=== PATIENT | female | born 1945 | race Caucasian/White ===

== ENCOUNTER 2020-03-05 09:15 | Inpatient (IN) | payer MEDICARE, OTHER ==
[~2020-03-05] VITALS: Ht 149.9 cm; Wt 91.2 kg
--- NOTE | 2020-03-05 09:30 | NUR ---
with patient at this time.
[2020-03-05] MEDS ORDERED: INSU100V7 SQ (09:38)
[2020-03-05] MEDS ORDERED: ENOX40DI SQ (09:38)
[2020-03-05] MEDS ORDERED: LISI40TA4 PO (09:38)
[2020-03-05] MEDS ORDERED: AMLO5TAB4 PO (09:38)
[2020-03-05] MEDS ORDERED: INSULIN REGULAR SQ (09:38)
[2020-03-05] MEDS ORDERED: POLY17PO4 PO (09:38)
[2020-03-05] MEDS ORDERED: ACET-2154 PO (09:38)
[2020-03-05] MEDS ORDERED: ONDA4AMP IV (09:38)
[2020-03-05] MEDS ORDERED: METO50TA16 PO (09:38)
[2020-03-05] MEDS ORDERED: MICONAZOLE TOP (09:38)
[2020-03-05] MEDS ORDERED: GABA-532 PO (09:38)
[2020-03-05] MEDS ORDERED: TRAM50TA2 PO (09:38)
[2020-03-05] MEDS ORDERED: PANT40TA2 PO (09:38)
[2020-03-05] MEDS ORDERED: HYDR-894 PO ×2 (09:38)
[2020-03-05] MEDS ORDERED: DEXT50VI3 IV (09:38)
[2020-03-05] MEDS ORDERED: RISP0.5T5 PO (09:38)
[2020-03-05 09:47] LABS: BASOPHILS % (AUTO) 0.4 % (0.0-2.0); EOSINOPHILS # (AUTO) 0.2 K/uL (0.0-0.7); EOSINOPHILS % (AUTO) 3.3 % (0.0-7.0); HEMATOCRIT 43.3 % (31.2-41.9); HEMOGLOBIN 14.7 g/dL (10.9-14.3); LYMPHOCYTES # (AUTO) 1.4 K/uL (20.0-40.0); LYMPHOCYTES % (AUTO) 18.8 % (20.5-51.5); MEAN CORPUSCULAR HEMOGLOBIN 29.9 uug (24.7-32.8); MEAN CORPUSCULAR HGB CONC 34 g/dL (32.3-35.6); MEAN CORPUSCULAR VOLUME 88.4 fL (75.5-95.3); MONOCYTES # (AUTO) 0.6 K/uL (2.0-10.0); MONOCYTES % (AUTO) 8.6 % (0.0-11.0); NEUTROPHILS # (AUTO) 4.9 K/uL (1.8-8.9); NEUTROPHILS % (AUTO) 68.9 % (38.5-71.5); PLATELET COUNT (AUTO) 210 K/uL (179-408); WHITE BLOOD COUNT (AUTO) 7.2 K/uL (3.8-11.8)
[2020-03-05 10:00] LABS: CARBON DIOXIDE 24 mmol/L (21-32); CHLORIDE 106 mmol/L (98-107); CREATININE 0.7 mg/dL (0.6-1.3); GLUCOSE 249 mg/dL (74-106); POTASSIUM 3.9 mmol/L (3.5-5.1); UREA NITROGEN, BLOOD 17 mg/dL (7-18)
[2020-03-05 10:05] LABS: ALANINE AMINOTRANSFERASE 72 U/L (14-59); ALKALINE PHOSPHATASE 68 U/L (50-136); BILIRUBIN,DIRECT 0.1 mg/dL (0.0-0.2); BILIRUBIN,TOTAL 0.4 mg/dL (0.2-1.0); ETHANOL < 3 MG/DL (0-0); TOTAL PROTEIN, SERUM 6.5 g/dL (6.4-8.2)
[2020-03-05 10:06] LABS: ACETAMINOPHEN < 2.0 ug/mL (10-30); ASPARTATE AMINOTRANSFERASE 42 U/L (15-37)
[2020-03-05 10:13] LABS: THYROID STIMULATING HORMONE 3.007 mIU/mL (0.358-3.740)
[2020-03-05 10:38] LABS: *BILIRUBIN,URIN NEGATIVE (NEGATIVE); *BLOOD, URINE NEGATIVE (NEGATIVE); *CLARITY,URINE CLOUDY (CLEAR); *COLOR,URINE YELLOW (YELLOW); *KETONES,URINE NEGATIVE (NEGATIVE); *UROBILINOGEN,URINE 0.2 E.U./dl (NORMAL); LEUKOCYTE ESTERASE ,URINE 1+ (NEGATIVE); NITRITE, URINE POSITIVE (NEGATIVE); UGLUCOSE 1+ (NEGATIVE)
[2020-03-05 10:56] LABS: *AMPHETAMINE, URINE NEGATIVE (NEGATIVE); *CANNABINOID, URINE NEGATIVE (NEGATIVE); *COCCAINE, URINE NEGATIVE (NEGATIVE); *OPIATE, URINE NEGATIVE (NEGATIVE); *PHENCYCLIDINE SCREEN,URINE NEGATIVE (NEGATIVE)
[2020-03-05] MEDS ORDERED: NITROFURANTOIN/NITROFURAN MAC 100 MG CAPSULE PO ONE ×2 (11:00→11:03)
--- NOTE | 2020-03-05 11:40 | NUR ---
Pt trans to MHU by PROGRAMMING DEVELOPMENT PROJECT MANAGER with NAD noted.
[2020-03-05] MEDS ORDERED: BLOOD SUGAR DIAGNOSTIC 1 EACH STRIP VI ONE (11:45)
[2020-03-05] MEDS ORDERED: MAG HYDROX/AL HYDROX/SIMETH 30 ML LIQUID UDC PO PRN (11:45)
[2020-03-05] MEDS ORDERED: LORAZEPAM 0.5 MG TABLET PO PRN (11:45)
[2020-03-05] MEDS ORDERED: ACETAMINOPHEN 325 MG TABLET PO PRN ×2 (11:45→14:30)
[2020-03-05] MEDS ORDERED: ZOLPIDEM 5 MG TABLET PO PRN (11:45)
[2020-03-05] MEDS ORDERED: MAGNESIUM HYDROXIDE 30 ML LIQUID UDC PO PRN (11:45)
[2020-03-05 12:00] VITALS: BP 159/64
[2020-03-05 12:59] LABS: BACTERIA,URINE MANY /HPF (NONE SEEN); RBC,URINE 0-3 /HPF (0-3); SQUAMOUS EPITHELIAL CELL,UR FEW /HPF (NONE SEEN); WBC,URINE TNTC /HPF (0-3)
[2020-03-05] MEDS ORDERED: TRAMADOL HCL 50 MG TABLET PO PRN (14:30)
[2020-03-05] MEDS ORDERED: MIRALAX 17 GM POWD.PACK PO PRN (14:30)
--- NOTE | 2020-03-05 14:35 | NUR ---
Admitted a 74 year-old female patient from ER, patient is alert and oriented x2 paranoia at time, patient is on 5150 for GD due to unable to care for herself. per patient medical record patient was AMA from a assisted and stay in a hotel.she states that recently fall and had rib fracture. 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 Franco made aware of Admission.
[2020-03-05 16:00] VITALS: BP 137/41
[2020-03-05] MEDS ORDERED: AMLODIPINE 5 MG TABLET PO SCH (17:00)
[2020-03-05] MEDS ORDERED: METOPROLOL TARTRATE 50 MG TABLET PO SCH (17:00)
[2020-03-05] MEDS: hydrALAZINE HCL 25 MG TABLET PO SCH ×2 (17:03→21:46)
[2020-03-05] MEDS: GABAPENTIN 100 MG CAPSULE PO SCH ×2 (17:03→21:33)
[2020-03-05] MEDS ORDERED: hydrALAZINE HCL 25 MG TABLET PO PRN (18:00)
[2020-03-05] MEDS: AMLODIPINE 5 MG TABLET PO SCH (21:44)
[2020-03-05] MEDS: METOPROLOL TARTRATE 50 MG TABLET PO SCH (21:44)
[2020-03-05] MEDS: ENOXAPARIN SODIUM 40 MG/0.4 ML DISP.SYRIN SQ SCH (21:50)
--- NOTE | 2020-03-06 06:07 | NUR ---
GPS: Remain calm and cooperative with meds and care. assisted with adl's. no c/o pain or discomfort at this time. resting in bed comfortably. continue plan of care.
--- NOTE | 2020-03-06 06:50 | NUR ---
slept 9.45 hrs through the night.
[2020-03-06 07:30] VITALS: BP 155/47
[2020-03-06 07:46] LABS: BILIRUBIN,TOTAL 0.5 mg/dL (0.2-1.0); CREATININE 0.7 mg/dL (0.6-1.3); POTASSIUM 3.9 mmol/L (3.5-5.1); TOTAL PROTEIN, SERUM 5.7 g/dL (6.4-8.2)
[2020-03-06] MEDS ORDERED: DEXTROSE 50% 50 ML DISP.SYRIN IV PRN (08:15)
[2020-03-06] MEDS ORDERED: TRAZODONE 50 MG TABLET PO PRN (09:00)
[2020-03-06] MEDS: GABAPENTIN 100 MG CAPSULE PO SCH ×3 (09:14→20:23)
[2020-03-06] MEDS: PANTOPRAZOLE SODIUM 40 MG TABLET.DR PO SCH (09:15)
[2020-03-06] MEDS: LISINOPRIL 20 MG TABLET PO SCH (09:15)
[2020-03-06] MEDS: CEphaleXIN 500 MG CAPSULE PO SCH ×3 (09:16→16:12)
[2020-03-06] MEDS: AMLODIPINE 5 MG TABLET PO SCH ×2 (09:17→20:24)
[2020-03-06] MEDS: METOPROLOL TARTRATE 50 MG TABLET PO SCH ×2 (09:17→20:23)
[2020-03-06] MEDS: hydrALAZINE HCL 25 MG TABLET PO SCH ×3 (09:20→20:23)
[2020-03-06] MEDS: risperiDONE 0.25 MG TABLET PO SCH ×2 (09:59→16:12)
--- NOTE | 2020-03-06 11:36 | NUR ---
Firearms Report: Assembler Tubing completed and submitted a DPJ firearms report for 5150 grave disability certification. A copy of report has been placed in patient chart.
[2020-03-06] MEDS: BLOOD SUGAR DIAGNOSTIC 1 EACH STRIP VI SCH ×3 (11:59→20:25)
--- NOTE | 2020-03-06 12:04 | NUR ---
SW Substance Abuse Intervention: Patient was provided with a brief substance abuse intervention and referred to [facility] ([phone]), [facility] ([phone]), and [facility] ([phone]).
--- NOTE | 2020-03-06 12:22 | NUR ---
BURAK Initial Discharge Plan: Patient is currently Homeless [facility] Patient was resident at [facility], however, she left AMA and went to a Motel. Patient does not have any supportive contact at the moment. This show card writer contacted [facility] ([phone]) this show card writer spoke with apollo Lise who stated pt left AMA and would have to discuss with treatment plan if they will take pt back. BURAK will work with the MD and treatment team to help coordinate proper discharge.
--- NOTE | 2020-03-06 12:23 | NUR ---
SW Family Contact: Patient does not have any supportive contact at the moment.
[2020-03-06] MEDS: INSULIN REGULAR, HUMAN 300 UNIT/3 ML VIAL SQ PRN ×2 (12:24→16:27)
[2020-03-06 16:00] VITALS: BP 153/36
[2020-03-06] MEDS: ENOXAPARIN SODIUM 40 MG/0.4 ML DISP.SYRIN SQ SCH (20:25)
[2020-03-06] MEDS: INSULIN REGULAR, HUMAN 300 UNITS/3 ML VIAL SQ PRN (20:26)
[2020-03-06 20:54] VITALS: BP 152/50
--- NOTE | 2020-03-07 06:14 | NUR ---
Received patient up in room last night. Patient had multiple requests for this and that. Mostly food. PM medications and food provided. Patient slept 6.30 hours. Continuing to monitor for behavior escalation and safety. No acute issues at this time.
[2020-03-07] MEDS: BLOOD SUGAR DIAGNOSTIC 1 EACH STRIP VI SCH ×4 (06:39→21:26)
[2020-03-07 07:30] VITALS: BP 168/48
[2020-03-07] MEDS: INSULIN REGULAR, HUMAN 300 UNIT/3 ML VIAL SQ PRN ×3 (08:27→17:04)
[2020-03-07] MEDS: AMLODIPINE 5 MG TABLET PO SCH ×2 (08:28→20:14)
[2020-03-07] MEDS: LISINOPRIL 20 MG TABLET PO SCH (08:28)
[2020-03-07] MEDS: CEphaleXIN 500 MG CAPSULE PO SCH ×3 (08:28→17:00)
[2020-03-07] MEDS: risperiDONE 0.25 MG TABLET PO SCH ×2 (08:28→17:00)
[2020-03-07] MEDS: PANTOPRAZOLE SODIUM 40 MG TABLET.DR PO SCH (08:28)
[2020-03-07] MEDS: hydrALAZINE HCL 25 MG TABLET PO SCH ×3 (08:29→20:15)
[2020-03-07] MEDS: GABAPENTIN 100 MG CAPSULE PO SCH ×3 (08:29→20:14)
[2020-03-07] MEDS: METOPROLOL TARTRATE 50 MG TABLET PO SCH ×2 (08:30→20:15)
--- NOTE | 2020-03-07 16:00 | NUR ---
Received patient in her room in bed, she is noted awake A/o x 2. patient noted hyperverbal, wuth flight of ideas but, pleasant upon approached. She is noted with poor insight and judgement as to the reason for her admission to MHU. She denied SI/HI/VH/AH. she is also noted with delusion of persecution and she is noted fixed on room-mate, he stated, "She is talking bad about me, she does not like that I wear diapers". patient was reassured and redirected. she was told to avoid confrontation with room mate. she was encouraged to verbalized feelings. pt is reassured for his safety. safety and fall precaution in place. will continue to monitor.
[2020-03-07 16:17] VITALS: BP 174/87
[2020-03-07 19:00] VITALS: BP 168/86
[2020-03-07 20:00] VITALS: BP 156/74
--- NOTE | 2020-03-07 20:00 | NUR ---
Patient noted arguing with room mate. she continue stated that room mate is "talking bad" about her. She required multiple redirection and reassurance. she is reassured for his safety.
[2020-03-07] MEDS: INSULIN REGULAR, HUMAN 300 UNITS/3 ML VIAL SQ PRN (21:28)
[2020-03-07] MEDS: INSULIN GLARGINE,HUM 300 UNITS/3 ML CARTRIDGE SQ SCH (21:29)
[2020-03-07] MEDS: ENOXAPARIN SODIUM 40 MG/0.4 ML DISP.SYRIN SQ SCH (21:30)
[2020-03-08] MEDS: BLOOD SUGAR DIAGNOSTIC 1 EACH STRIP VI SCH ×4 (06:59→20:12)
[2020-03-08 07:30] VITALS: BP 196/72
[2020-03-08] MEDS: CEphaleXIN 500 MG CAPSULE PO SCH ×3 (08:43→16:52)
[2020-03-08] MEDS: risperiDONE 0.25 MG TABLET PO SCH (08:44)
[2020-03-08] MEDS: GABAPENTIN 100 MG CAPSULE PO SCH ×3 (08:44→20:13)
[2020-03-08] MEDS: AMLODIPINE 5 MG TABLET PO SCH ×2 (08:44→20:14)
[2020-03-08] MEDS: PANTOPRAZOLE SODIUM 40 MG TABLET.DR PO SCH (08:44)
[2020-03-08] MEDS: METOPROLOL TARTRATE 50 MG TABLET PO SCH ×2 (08:45→20:28)
[2020-03-08] MEDS: hydrALAZINE HCL 25 MG TABLET PO SCH ×3 (08:45→20:13)
[2020-03-08] MEDS: LISINOPRIL 20 MG TABLET PO SCH (08:45)
[2020-03-08] MEDS: INSULIN REGULAR, HUMAN 300 UNIT/3 ML VIAL SQ PRN ×2 (12:16→16:54)
[2020-03-08 16:00] VITALS: BP 149/38
[2020-03-08] MEDS: risperiDONE 0.5 MG TABLET PO SCH (16:52)
[2020-03-08 20:06] VITALS: BP 146/66
[2020-03-08] MEDS: ENOXAPARIN SODIUM 40 MG/0.4 ML DISP.SYRIN SQ SCH (20:15)
[2020-03-08] MEDS: INSULIN GLARGINE,HUM 300 UNITS/3 ML CARTRIDGE SQ SCH (20:27)
[2020-03-08] MEDS: INSULIN REGULAR, HUMAN 300 UNITS/3 ML VIAL SQ PRN (20:30)
--- NOTE | 2020-03-09 05:46 | NUR ---
Patient slept 7.00 hours last night. No verbal altercations with the roommates noted. Patient continues to have delusion, but denies SI and HI. Unable to engage in meaningful conversation without interjection of delusional thoughts. Beauty Operator provided reality based input and redirection when necessary. No acute issues during the night, patient has been calm and cooperative.
[2020-03-09] MEDS: BLOOD SUGAR DIAGNOSTIC 1 EACH STRIP VI SCH ×4 (06:41→20:33)
[2020-03-09 07:30] VITALS: BP 177/41
[2020-03-09] MEDS: AMLODIPINE 5 MG TABLET PO SCH ×2 (08:47→20:35)
[2020-03-09] MEDS: GABAPENTIN 100 MG CAPSULE PO SCH ×3 (08:47→20:33)
[2020-03-09] MEDS: METOPROLOL TARTRATE 50 MG TABLET PO SCH ×2 (08:47→20:34)
[2020-03-09] MEDS: risperiDONE 0.5 MG TABLET PO SCH ×2 (08:47→17:14)
[2020-03-09] MEDS: LISINOPRIL 20 MG TABLET PO SCH (08:48)
[2020-03-09] MEDS: hydrALAZINE HCL 25 MG TABLET PO SCH ×3 (08:48→20:34)
[2020-03-09] MEDS: CEphaleXIN 500 MG CAPSULE PO SCH ×3 (08:48→17:14)
[2020-03-09] MEDS: PANTOPRAZOLE SODIUM 40 MG TABLET.DR PO SCH (08:48)
--- NOTE | 2020-03-09 10:51 | NUR ---
SW Note: This insurance writer met with patient and looked through items with patient to locate family contact. However, no family contact information was in her items.
--- NOTE | 2020-03-09 10:51 | NUR ---
SNF Contact: his check writer salesperson contacted [facility] ([phone]) and spoke with admissions Lise who stated pt is not welcomed back because she has left facility 3 times AMA. This check writer salesperson gathered collateral. Lise stated pt was residing at [facility] since June 2018 and stated no family has contacted her. She stated pt has been claiming that she has a son and daughter but no one has ever contacted pt.
--- NOTE | 2020-03-09 11:02 | NUR ---
SW Note: This com writer met with pt and pt gave an address that says 5th grade. She gave multiple numbers and claiming it is her daughters number. She gave [facility] Project number ([phone]) and other numbers ([phone]), ([phone]) and were not her daughters number.
--- NOTE | 2020-03-09 11:12 | NUR ---
SW Note: This found information pt was residing at [address], [place], [address]; ([phone]).
--- NOTE | 2020-03-09 11:37 | NUR ---
UR Note: AUTH# [id number] obtained from Harika with [employer]. approved for seven days. Can be reached at [phone] and his fax# [phone]. This fha underwriter left a voicemail of this SW information and faxed patient's clinicals.
[2020-03-09] MEDS: INSULIN REGULAR, HUMAN 300 UNITS/3 ML VIAL SQ PRN ×3 (12:09→20:44)
[2020-03-09 16:00] VITALS: BP 145/60
[2020-03-09 20:17] VITALS: BP 149/62
[2020-03-09] MEDS: ENOXAPARIN SODIUM 40 MG/0.4 ML DISP.SYRIN SQ SCH (20:47)
[2020-03-09] MEDS: INSULIN GLARGINE,HUM 300 UNITS/3 ML CARTRIDGE SQ SCH (20:49)
[2020-03-10] MEDS: BLOOD SUGAR DIAGNOSTIC 1 EACH STRIP VI SCH ×4 (06:43→20:10)
[2020-03-10 07:40] VITALS: BP 165/52
--- NOTE | 2020-03-10 08:09 | NUR ---
UR Note: AUTH# [id number] immigration case manager Radha ([phone]) will be pt's immigration case manager and stated she is authorized until 03/11 and her fax# [phone].
[2020-03-10] MEDS: risperiDONE 0.5 MG TABLET PO SCH ×3 (08:23→16:53)
[2020-03-10] MEDS: LISINOPRIL 20 MG TABLET PO SCH (08:24)
[2020-03-10] MEDS: PANTOPRAZOLE SODIUM 40 MG TABLET.DR PO SCH (08:24)
[2020-03-10] MEDS: METOPROLOL TARTRATE 50 MG TABLET PO SCH ×2 (08:25→20:10)
[2020-03-10] MEDS: GABAPENTIN 100 MG CAPSULE PO SCH ×3 (08:25→21:00)
[2020-03-10] MEDS: hydrALAZINE HCL 25 MG TABLET PO SCH ×3 (08:25→20:09)
[2020-03-10] MEDS: AMLODIPINE 5 MG TABLET PO SCH ×2 (08:28→20:07)
[2020-03-10] MEDS: CEphaleXIN 500 MG CAPSULE PO SCH ×3 (08:32→16:53)
--- NOTE | 2020-03-10 10:14 | NUR ---
SW Note: This speech writer discussed placement options with pt and pt stated she wants to go back to [employer] in [place].
--- NOTE | 2020-03-10 10:19 | NUR ---
Individual Counseling: patch worker met with patient for brief counseling to address patient's aggressive behavior. Patient appeared to be delusional and paranoid. Patient constantly stating she has family and that someone dropped her off clothes. However, patient does not have family as this SW has done research. Patient was unable to have proper conversation due to delusions. This specification writer was unable to conduct therapy at this moment.
--- NOTE | 2020-03-10 12:57 | NUR ---
BURAK Transportation: This song writer contacted [facility] SW drug department worker ([phone]) and department main number ([phone]) and left a voicemail to help with transportation.
[2020-03-10] MEDS: INSULIN REGULAR, HUMAN 300 UNIT/3 ML VIAL SQ PRN ×2 (13:02→16:52)
--- NOTE | 2020-03-10 13:27 | NUR ---
SW Transportation: This bond writer contacted [facility] SW department main number ([phone]) and spoke with Eva who stated pt is no longer with them and they do not provide transportation.
--- NOTE | 2020-03-10 16:20 | NUR ---
SW Coordination of Care: [facility] [address], [facility], [address]; ([phone]) will follow with (top lift trimmer) Dr. Vaughan on March 18 at 4:15PM. s iron worker Radha ([phone]) who arranged appointment.
--- NOTE | 2020-03-10 18:02 | NUR ---
pt is cooperative and interacts when engaged. Makes needs known to staff. pt keeps to self isolative and stays in room.
[2020-03-10 20:00] VITALS: BP 171/54
[2020-03-10] MEDS: INSULIN REGULAR, HUMAN 300 UNITS/3 ML VIAL SQ PRN (20:11)
[2020-03-10] MEDS: INSULIN GLARGINE,HUM 300 UNITS/3 ML CARTRIDGE SQ SCH (20:12)
[2020-03-10] MEDS: ENOXAPARIN SODIUM 40 MG/0.4 ML DISP.SYRIN SQ SCH (20:13)
[2020-03-10 21:00] VITALS: BP 152/64
[2020-03-11] MEDS: BLOOD SUGAR DIAGNOSTIC 1 EACH STRIP VI SCH ×4 (06:30→20:55)
[2020-03-11 07:30] VITALS: BP 123/66
[2020-03-11] MEDS: PANTOPRAZOLE SODIUM 40 MG TABLET.DR PO SCH (08:23)
[2020-03-11] MEDS: AMLODIPINE 5 MG TABLET PO SCH ×2 (08:23→20:44)
[2020-03-11] MEDS: GABAPENTIN 100 MG CAPSULE PO SCH ×3 (08:24→20:44)
[2020-03-11] MEDS: hydrALAZINE HCL 25 MG TABLET PO SCH ×3 (08:24→20:44)
[2020-03-11] MEDS: METOPROLOL TARTRATE 50 MG TABLET PO SCH ×2 (08:24→20:44)
[2020-03-11] MEDS: LISINOPRIL 20 MG TABLET PO SCH (08:24)
[2020-03-11] MEDS: CEphaleXIN 500 MG CAPSULE PO SCH ×3 (08:24→17:30)
[2020-03-11] MEDS: INSULIN REGULAR, HUMAN 300 UNIT/3 ML VIAL SQ PRN ×2 (08:28→12:29)
[2020-03-11] MEDS ORDERED: risperiDONE 1 MG TABLET PO ONE (09:00)
[2020-03-11] MEDS ORDERED: risperiDONE 2 MG TABLET PO SCH (09:00)
--- NOTE | 2020-03-11 09:00 | NUR ---
patient is anxious, guarded, and withdrawn to her assigned room. she is cooperative and pleasant with staff, but has periods where she becomes angry and labile. patient is redirectable. patient has paranoid thoughts, she believes that others are watching her and following her. she denies SI/HI, denies AH/VH. patient is adherent with medication, no adverse reaction noted. she is able to communicate needs to staff. able to ambulate independently with FWW. patient given risperidone 1 mg PO as ordered this AM. MD changed order from risperidone 1 mg PO to 2 mg PO after medication administration. pharmacy notified, and one time order placed for risperidone 1 mg PO to equal the 2 mg PO dose. patient provided with education about medication and it's side effects, able to verbalize understanding.
--- NOTE | 2020-03-11 09:34 | NUR ---
UR Note: AUTH# [id number] watch case polisher Radha ([phone]) (F:[phone]) and will review clinicals for authorization. This SW sent clinicals.
--- NOTE | 2020-03-11 10:33 | NUR ---
SW Transportation: This manual writer received a phone call from Julianne ([phone]) from [facility] who stated they will provided transportation upon discharge.
--- NOTE | 2020-03-11 10:34 | NUR ---
BURAK PC Hearing: Patient had probable cause hearing today and it was upheld for grave disability.
[2020-03-11 12:17] LABS: BASOPHILS % (AUTO) 0.3 % (0.0-2.0); EOSINOPHILS # (AUTO) 0.2 K/uL (0.0-0.7); EOSINOPHILS % (AUTO) 2.1 % (0.0-7.0); HEMATOCRIT 41.5 % (31.2-41.9); HEMOGLOBIN 13.8 g/dL (10.9-14.3); LYMPHOCYTES # (AUTO) 1.2 K/uL (20.0-40.0); LYMPHOCYTES % (AUTO) 16.2 % (20.5-51.5); MEAN CORPUSCULAR HEMOGLOBIN 29.6 uug (24.7-32.8); MEAN CORPUSCULAR HGB CONC 33 g/dL (32.3-35.6); MEAN CORPUSCULAR VOLUME 88.7 fL (75.5-95.3); MONOCYTES # (AUTO) 0.6 K/uL (2.0-10.0); MONOCYTES % (AUTO) 8.3 % (0.0-11.0); NEUTROPHILS # (AUTO) 5.2 K/uL (1.8-8.9); NEUTROPHILS % (AUTO) 73.1 % (38.5-71.5); PLATELET COUNT (AUTO) 219 K/uL (179-408); RED BLOOD CELL COUNT(AUTO) 4.67 MIL/uL (3.63-4.92); WHITE BLOOD COUNT (AUTO) 7.2 K/uL (3.8-11.8)
[2020-03-11 12:18] LABS: CREATININE 0.8 mg/dL (0.6-1.3); POTASSIUM 3.7 mmol/L (3.5-5.1)
--- NOTE | 2020-03-11 13:11 | NUR ---
SW Note: This entry writer met with pt and explained she will be discharged Monday. Pt wants to be discharged back [address] This entry writer stated [facility] will provide transportation on Monday03/13/20. Pt was agreeable.
--- NOTE | 2020-03-11 14:15 | NUR ---
UR Note: AUTH# [id number] case management specialist Radha ([phone]) authorized until 03/13.
[2020-03-11 16:00] VITALS: BP 147/42
[2020-03-11] MEDS: risperiDONE 2 MG TABLET PO SCH (17:30)
[2020-03-11 20:00] VITALS: BP 156/64
[2020-03-11] MEDS: ENOXAPARIN SODIUM 40 MG/0.4 ML DISP.SYRIN SQ SCH (20:54)
[2020-03-11] MEDS: INSULIN GLARGINE,HUM 300 UNITS/3 ML CARTRIDGE SQ SCH (20:56)
[2020-03-11] MEDS: INSULIN REGULAR, HUMAN 300 UNITS/3 ML VIAL SQ PRN (21:00)
[2020-03-12] MEDS: BLOOD SUGAR DIAGNOSTIC 1 EACH STRIP VI SCH ×4 (06:31→20:38)
[2020-03-12 07:51] VITALS: BP 189/68
[2020-03-12] MEDS: INSULIN REGULAR, HUMAN 300 UNIT/3 ML VIAL SQ PRN ×2 (08:06→18:04)
[2020-03-12] MEDS: METOPROLOL TARTRATE 50 MG TABLET PO SCH ×2 (09:19→20:36)
[2020-03-12] MEDS: GABAPENTIN 100 MG CAPSULE PO SCH ×3 (09:19→20:35)
[2020-03-12] MEDS: AMLODIPINE 5 MG TABLET PO SCH ×2 (09:20→20:36)
[2020-03-12] MEDS: risperiDONE 2 MG TABLET PO SCH ×2 (09:20→16:38)
[2020-03-12] MEDS: CEphaleXIN 500 MG CAPSULE PO SCH ×3 (09:24→16:38)
[2020-03-12] MEDS: LISINOPRIL 20 MG TABLET PO SCH (09:26)
[2020-03-12] MEDS: PANTOPRAZOLE SODIUM 40 MG TABLET.DR PO SCH (09:26)
[2020-03-12] MEDS: hydrALAZINE HCL 25 MG TABLET PO SCH ×3 (09:27→20:36)
--- NOTE | 2020-03-12 12:24 | NUR ---
Gps/Dispatcher Maintenance-Kept coming to the Nurses station, asking for her bra, needed to wear before leaving today, informed she is not leaving today, , reassured will returned all her valuables/belongings when she leaves. BS 188, refusing her sliding scale insulin .remains with eye patch right eye.
[2020-03-12 16:35] VITALS: BP 157/69
--- NOTE | 2020-03-12 18:00 | NUR ---
Gps/Quality Eng- patient allowed staff to administer sliding scale insulin coverage, for BS 251. Ate well dinner, requesting double portion chicken , informed her diet restrictions r/t to her diabetes .
[2020-03-12] MEDS: INSULIN GLARGINE,HUM 300 UNITS/3 ML CARTRIDGE SQ SCH (20:39)
[2020-03-12] MEDS: INSULIN REGULAR, HUMAN 300 UNITS/3 ML VIAL SQ PRN (20:43)
[2020-03-12] MEDS: ENOXAPARIN SODIUM 40 MG/0.4 ML DISP.SYRIN SQ SCH (20:45)
[2020-03-12 20:49] VITALS: BP 135/69
[2020-03-13] MEDS: BLOOD SUGAR DIAGNOSTIC 1 EACH STRIP VI SCH ×2 (06:33→11:30)
[2020-03-13 07:30] VITALS: BP 157/53
--- NOTE | 2020-03-13 08:02 | NUR ---
Discharge Note: Patient wants to be discharged to [facility] [address], [place], [address]; ([phone]). Patient will be provided with transportation through [facility] transportation called A to B at 1PM (spoke with Julianne ([phone]) who arranged transportation. Patient does not have supportive contact. Patient is alert and oriented x3. Patient denies suicidal or homicidal ideation. Patient will follow up with (Players Club Representative) Dr. Alexus Acosta on March 18 at 4:15PM and will provide and manage psychotropic medications located at [facility] [address], [facility], [address]; ([phone]). Patients primary doctors office will refer patient to a psychiatrist. This rewriter also gave resources for a psychiatrist office located [facility] [address] [place] [address], [facility]; ([phone]). Patient was provided referrals to the following substance abuse programs: [facility] Self[facility] ([phone]); [facility] [address] [place] [address] ([phone]); [facility] [address] [facility] [address] ([phone]); [facility] ([phone]); [facility] ([phone]); [facility] ([phone]); [facility] ([phone]). Patient presents with euthymic mood and congruent affect. Patient signed the homeless waiver form and a copy was placed in the chart.
[2020-03-13] MEDS: hydrALAZINE HCL 25 MG TABLET PO SCH (09:00)
[2020-03-13 09:01] VITALS: BP 157/53
[2020-03-13] MEDS: AMLODIPINE 5 MG TABLET PO SCH (09:01)
[2020-03-13] MEDS: risperiDONE 2 MG TABLET PO SCH (09:01)
[2020-03-13] MEDS: LISINOPRIL 20 MG TABLET PO SCH (09:01)
[2020-03-13] MEDS: PANTOPRAZOLE SODIUM 40 MG TABLET.DR PO SCH (09:01)
[2020-03-13] MEDS: METOPROLOL TARTRATE 50 MG TABLET PO SCH (09:01)
[2020-03-13] MEDS: GABAPENTIN 100 MG CAPSULE PO SCH (09:01)
--- NOTE | 2020-03-13 13:35 | NUR ---
DISCHARGE NOTE: Patient discharged in stable condition, accompanied off the unit with LOOM REPAIRER in a wheelchair. [address], [place] [address]) per patient's request. Patient states that she has family that is willing to help her. She state that she is going to use the money from her social security checks to buy herself clothing and food. Patient provided with discharge prescriptions, instructions for follow-up care, and education about diagnosis and medications. Patient is able to verbalize understanding of all education. patient's valuables and belongings inventoried to patient, returned, and belongings/valuable sheets signed by patient. All belongings and valuables returned to patient. Patient instructed to call 911 if she is having thoughts of harming herself or others, or if any other psychiatric or medical emergency occurs. Patient is calm, cooperative, and redirectable. She is able to communicate needs to staff. She denies suicidal and homicidal ideation. She is alert and oriented in reality.
== END 2020-03-13 13:30 | disposition home or self-care (01) | DRG 885 ==
LOC: ER 09:15 → GPS 11:28
PROVIDERS: ADMIT Psychiatry & Neurology Psychiatry; ATTEND Internal Medicine
DX: F29 Unspecified psychosis not due to a substance or known physiological condition (principal); E43 Unspecified severe protein-calorie malnutrition; E11.65 Type 2 diabetes mellitus with hyperglycemia; N39.0 Urinary tract infection, site not specified; Z68.41 Body mass index [BMI] 40.0-44.9, adult; Z59.0 Homelessness; E78.5 Hyperlipidemia, unspecified; F20.0 Paranoid schizophrenia; F32.9 Major depressive disorder, single episode, unspecified; H54.61 Unqualified visual loss, right eye, normal vision left eye; I10 Essential (primary) hypertension; I25.10 Atherosclerotic heart disease of native coronary artery without angina pectoris; Z79.4 Long term (current) use of insulin; G62.9 Polyneuropathy, unspecified; Z86.73 Personal history of transient ischemic attack (TIA), and cerebral infarction without residual deficits; Z73.6 Limitation of activities due to disability; M62.81 Muscle weakness (generalized); F41.9 Anxiety disorder, unspecified; E88.09 Other disorders of plasma-protein metabolism, not elsewhere classified; E66.01 Morbid (severe) obesity due to excess calories; B96.20 Unspecified Escherichia coli [E. coli] as the cause of diseases classified elsewhere
CPT/HCPCS: 36415; 70030-TC; 71045; 83690; 83735; 84443; 85025; 87077; 87086; 93005; A4663; G0480; J1650; J1815; J7030

== ENCOUNTER 2020-05-21 20:26 | Inpatient (IN) | payer MEDICARE, OTHER ==
[~2020-05-21] VITALS: Ht 149.9 cm; Wt 88.0 kg
[~2020-05-21 20:26] MED LIST: ACET-2154 PO; AMLO5TAB4 PO; DEXT50VI3 IV; ENOX40DI SQ; GABA-532 PO; HYDR-894 PO; INSU100V7 SQ; INSULIN REGULAR SQ; LISI40TA13 PO; METO50TA16 PO; MICONAZOLE TOP; ONDA4AMP IV; PANT40TA2 PO; POLY17PO4 PO; TRAM50TA2 PO
[2020-05-21] MEDS ORDERED: [UNRECOGNIZED DRUG - REMARK] (20:50)
[2020-05-21 21:01] LABS: BASOPHILS % (AUTO) 0.5 % (0.0-2.0); EOSINOPHILS # (AUTO) 0.2 K/uL (0.0-0.7); EOSINOPHILS % (AUTO) 2.7 % (0.0-7.0); HEMATOCRIT 41.6 % (31.2-41.9); HEMOGLOBIN 14.1 g/dL (10.9-14.3); LYMPHOCYTES # (AUTO) 1.7 K/uL (20.0-40.0); LYMPHOCYTES % (AUTO) 22.6 % (20.5-51.5); MEAN CORPUSCULAR HEMOGLOBIN 29.9 uug (24.7-32.8); MEAN CORPUSCULAR HGB CONC 34 g/dL (32.3-35.6); MEAN CORPUSCULAR VOLUME 88.4 fL (75.5-95.3); MONOCYTES # (AUTO) 0.7 K/uL (2.0-10.0); MONOCYTES % (AUTO) 8.6 % (0.0-11.0); NEUTROPHILS % (AUTO) 65.6 % (38.5-71.5); PLATELET COUNT (AUTO) 250 K/uL (179-408); RED BLOOD CELL COUNT(AUTO) 4.71 MIL/uL (3.63-4.92); WHITE BLOOD COUNT (AUTO) 7.6 K/uL (3.8-11.8)
[2020-05-21 21:05] LABS: POTASSIUM 3.6 mmol/L (3.5-5.1)
[2020-05-21 21:11] LABS: BILIRUBIN,TOTAL 0.4 mg/dL (0.2-1.0); MAGNESIUM 1.9 mg/dL (1.8-2.4); TOTAL PROTEIN, SERUM 6.2 g/dL (6.4-8.2)
--- NOTE | 2020-05-21 22:00 | NUR ---
Called for room in MHU, DOMINGUEZ Spencer states there are no female beds available until next shift when sitter is available. Drier Transfer Car Operator Holli made aware.
--- NOTE | 2020-05-21 22:50 | NUR ---
Crisis team called, on way to evaluate patient.
--- NOTE | 2020-05-21 22:57 | NUR ---
Quang Spaulding arrived to do psych evaluation on patient.
[2020-05-21 23:08] LABS: *BILIRUBIN,URIN NEGATIVE (NEGATIVE); *BLOOD, URINE NEGATIVE (NEGATIVE); *CLARITY,URINE CLOUDY (CLEAR); *COLOR,URINE YELLOW (YELLOW); *KETONES,URINE TRACE (NEGATIVE); *UROBILINOGEN,URINE 0.2 E.U./dl (NORMAL); LEUKOCYTE ESTERASE ,URINE NEGATIVE (NEGATIVE); NITRITE, URINE NEGATIVE (NEGATIVE)
--- NOTE | 2020-05-21 23:08 | NUR ---
Patient is resting in room, no acute distress noted at this time.
[2020-05-21 23:10] LABS: UGLUCOSE 2+ (NEGATIVE)
[2020-05-21 23:27] LABS: BACTERIA,URINE MANY /HPF (NONE SEEN); RBC,URINE 0-3 /HPF (0-3); SQUAMOUS EPITHELIAL CELL,UR FEW /HPF (NONE SEEN); WBC,URINE 80-100 /HPF (0-3)
--- NOTE | 2020-05-22 00:12 | NUR ---
sanitation technician Jarek notified that patient is COVID -
[2020-05-22] MEDS ORDERED: diphenhydrAMINE 50 MG CAPSULE PO ONE (00:15)
[2020-05-22] MEDS ORDERED: HALOPERIDOL 0.5 MG TABLET PO ONE (00:15)
[2020-05-22] MEDS ORDERED: LORAZEPAM 0.5 MG TABLET PO ONE (00:15)
[2020-05-22] MEDS ORDERED: LORAZEPAM 2 MG/1 ML VIAL IM ONE (00:30)
[2020-05-22] MEDS ORDERED: diphenhydrAMINE 50 MG/1 ML VIAL IM ONE (00:30)
[2020-05-22] MEDS ORDERED: HALOPERIDOL LACTATE 5 MG/1 ML VIAL IM ONE (00:30)
[2020-05-22] MEDS ORDERED: diphenhydrAMINE 50 MG/1 ML VIAL ONE (00:35)
[2020-05-22] MEDS ORDERED: HALOPERIDOL LACTATE 5 MG/1 ML VIAL ONE (00:36)
[2020-05-22] MEDS ORDERED: LORAZEPAM 2 MG/1 ML VIAL ONE (00:36)
--- NOTE | 2020-05-22 00:45 | NUR ---
Patient all refused medications, NOTIFIED, All medication was wasted and witnessed by DOMINGUEZ PEREZ.
--- NOTE | 2020-05-22 01:30 | NUR ---
Patient is sleeping in the bed, no acute distress is noted at this time.
--- NOTE | 2020-05-22 03:00 | NUR ---
Patient is sleeping in room, no acute distress noted at this time.
--- NOTE | 2020-05-22 05:30 | NUR ---
Patient is sleeping in room, no acute distress is noted at this time.
--- NOTE | 2020-05-22 06:50 | NUR ---
Checked in with MHU for room with patient, no rooms at the moment. Svetlana will call back once there is.
--- NOTE | 2020-05-22 07:15 | NUR ---
Report given to DOMINGUEZ ANTONIO
--- NOTE | 2020-05-22 07:20 | NUR ---
Pt found to be wandering to other ER rooms. Redirected and taken back to her room.
[2020-05-22 08:00] VITALS: BP 198/65
[2020-05-22] MEDS ORDERED: MAG HYDROX/AL HYDROX/SIMETH 30 ML LIQUID UDC PO PRN (08:15)
[2020-05-22] MEDS ORDERED: MAGNESIUM HYDROXIDE 30 ML LIQUID UDC PO PRN (08:15)
[2020-05-22] MEDS ORDERED: LORAZEPAM 0.5 MG TABLET PO PRN ×2 (08:15→08:45)
[2020-05-22] MEDS ORDERED: ACETAMINOPHEN 325 MG TABLET PO PRN (08:15)
[2020-05-22] MEDS ORDERED: TEMAZEPAM 7.5 MG CAPSULE PO PRN (08:15)
[2020-05-22] MEDS ORDERED: BLOOD SUGAR DIAGNOSTIC 1 EACH STRIP VI ONE (08:15)
--- NOTE | 2020-05-22 08:43 | NUR ---
Firearms Report: Globe Changer completed and submitted a DP[employer] firearms report for 5150 grave disability certification. A copy of report has been placed in patient chart.
[2020-05-22] MEDS ORDERED: TRAZODONE 50 MG TABLET PO PRN (08:45)
[2020-05-22] MEDS ORDERED: LORAZEPAM 1 MG TABLET PO PRN (09:00)
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
--- NOTE | 2020-05-22 09:48 | NUR ---
Initial Discharge Plan: Patient is currently homeless. This SW contacted nursing facility [facility] and spoke with Xenia ([phone]) admin who stated patient has not been with them for about 2 months and has left AMA. Xenia stated she will discuss with staff if they can take pt back or not. The address stated on pt's facesheet [address], [place] [address] [address] This SW contacted [facility] and spoke with medical records Nora ([phone]) who stated they have the same address as us and that pt is homeless. This SW will work with the MD and treatment team to help coordinate proper discharge.
--- NOTE | 2020-05-22 09:48 | NUR ---
[facility] Contact: This SW contacted nursing facility [facility] and spoke with Xenia ([phone]) admin who stated patient has not been with them for about 2 months and has left AMA. Xenia stated she will discuss with staff if they can take pt back or not.
--- NOTE | 2020-05-22 09:48 | NUR ---
[facility] Contact: This SW contacted [facility] and spoke with medical records Nora ([phone]) who stated they have the same address as us and that pt is homeless.
--- NOTE | 2020-05-22 09:54 | NUR ---
SW Substance Abuse Intervention: Patient was provided with a brief substance abuse intervention and referred to [facility] ([phone]), [facility] ([phone]), and [facility] ([phone]).
--- NOTE | 2020-05-22 09:57 | NUR ---
UR Note: Auth# [id number] from [employer]- FAX# [phone], PHONE [phone]. This SW contacted insurance case manager LESLIE and left a detailed voicemail and faxed patient's clinicals.
[2020-05-22] MEDS: risperiDONE 1 MG TABLET PO SCH ×3 (10:04→17:15)
--- NOTE | 2020-05-22 11:11 | NUR ---
[facility] Contact: This SW contacted nursing facility [facility] and spoke with Xenia ([phone]) who stated she discussed with treatment team and they cannot take patient back due to patient leaving AMA multiple times.
--- NOTE | 2020-05-22 11:36 | NUR ---
SW Note: Patient appeared delusional and paranoid. Patient has been threatening this SW stating "I am going to kill you". Patient wanting to leave the hospital. Patient has been responding to internal stimuli. Patient verbally abusive towards this SW and staff.
--- NOTE | 2020-05-22 11:40 | NUR ---
Gps/Adventure Guide- Patient started yelling someone is coming to burn the place,and he will going to get you per pt.," Petr lives in the ceiling he'll find you" .patient demanding to get all her belongings and her purse, claimed someone will be coming to pick her up , to take her back to her place. tried to reorient patient prn ativan 1 tab po. given.Will continue to monitor behavior.
[2020-05-22] MEDS ORDERED: OLANZAPINE 10 MG VIAL IM ONE (12:45)
--- NOTE | 2020-05-22 12:53 | NUR ---
Gps/Woodworking Craftsman- Demanding behavior, wanting to have all her belongings back , when staff unable to give in to her request starting to scream threw her luch tray on the floor. Ore Feeder called Psychiatrist, ordered received.
[2020-05-22] MEDS: GABAPENTIN 100 MG CAPSULE PO SCH ×3 (13:00→17:15)
--- NOTE | 2020-05-22 13:59 | NUR ---
UR Note: Auth#[id number] from [employer] - , . This SW spoke with LESLIE nurse outreach case manager who authorized until 05/26 and requested this SW to speak to Radha who will be the nurse outreach case manager for patient. Radha's number ([phone]) (F:[phone]). BURAK has to fax clinicals on Friday 05/26.
[2020-05-22] MEDS: hydrALAZINE HCL 25 MG TABLET PO SCH ×2 (14:00→21:27)
[2020-05-22 16:00] VITALS: BP 152/57
--- NOTE | 2020-05-22 16:00 | NUR ---
Gps/Grievance And Appeals Specialist- Patient fell asleep after her injection of Zyprexia 10 mg IM . , patient noted incontienent of large amount of urine in bed, and on the floor.Patient kept up in her chair while bed is being sanitized. ,but patient cant wait , she end up going to the other bed. even was raised high. Reviwed safety.
--- NOTE | 2020-05-22 17:21 | NUR ---
Gps/Corn Grower- patient refusing pm meds, reoffered, pt. remains to refused yelling and said" give it to the man Petr, he needs it". reviewed with patient reason why she's here, , does not was to listen , told staff , " get ou of here"
[2020-05-22] MEDS: AMLODIPINE 5 MG TABLET PO SCH (21:00)
[2020-05-22] MEDS ORDERED: ENOXAPARIN SODIUM 40 MG/0.4 ML DISP.SYRIN SQ SCH (21:00)
--- NOTE | 2020-05-22 21:29 | NUR ---
Patient refused to allow VS to be taken and also refused to take PM medications. Waiter/Waitress First Class encouraged and educated patient on compliance. Patient is not an active listener at this time. Monitoring for safety and behavior escalation.
[2020-05-23] MEDS: hydrALAZINE HCL 25 MG TABLET PO SCH ×3 (06:00→22:00)
[2020-05-23] MEDS: PANTOPRAZOLE SODIUM 40 MG TABLET.DR PO SCH (06:04)
--- NOTE | 2020-05-23 06:11 | NUR ---
Patient refusing am medications. Total sleep was 10.00 hours. Patient assisted to the bathroom this am, then back to bed. Reorientation provided and monitoring for safety. No acute distress noted at this time.
[2020-05-23 07:30] VITALS: BP 170/79
[2020-05-23] MEDS ORDERED: Medication Not On Formulary EA (Lisinopril 40 MG) PO SCH (09:00)
[2020-05-23] MEDS: LISINOPRIL 20 MG TABLET PO SCH (09:59)
[2020-05-23] MEDS: GABAPENTIN 100 MG CAPSULE PO SCH ×3 (10:00→17:57)
[2020-05-23] MEDS: AMLODIPINE 5 MG TABLET PO SCH ×2 (10:00→20:26)
[2020-05-23] MEDS: risperiDONE 1 MG TABLET PO SCH ×2 (10:00→17:57)
[2020-05-23] MEDS ORDERED: INSULIN REGULAR, HUMAN 300 UNIT/3 ML VIAL SQ PRN (10:15)
[2020-05-23] MEDS ORDERED: DEXTROSE 50% 50 ML DISP.SYRIN IV PRN (10:15)
[2020-05-23] MEDS: BLOOD SUGAR DIAGNOSTIC 1 EACH STRIP VI SCH ×3 (11:30→20:08)
[2020-05-23 16:00] VITALS: BP 153/69
[2020-05-23] MEDS: METFORMIN HCL 500 MG TABLET PO SCH (17:57)
[2020-05-23] MEDS: CEphaleXIN 500 MG CAPSULE PO SCH (17:57)
[2020-05-23 20:00] VITALS: BP 153/67
--- NOTE | 2020-05-24 02:12 | NUR ---
Patient is still non compliant at times with certain medications. Blood sugar was high last night and patient agreed to receive Insulin , after much education and encouragement from this technical document writer. No s/s of alteration in glucose metabolism noted. Patient is needy tonight and is provided with assistance frequently. Patient has had some delusions, but is also able to engage in meaningful conversation. Continuing to monitor for safety and behavior escalation. No acute distress at this time.
[2020-05-24] MEDS: PANTOPRAZOLE SODIUM 40 MG TABLET.DR PO SCH (05:39)
[2020-05-24] MEDS: hydrALAZINE HCL 25 MG TABLET PO SCH ×3 (05:50→21:47)
[2020-05-24] MEDS: BLOOD SUGAR DIAGNOSTIC 1 EACH STRIP VI SCH ×3 (05:50→20:11)
--- NOTE | 2020-05-24 06:53 | NUR ---
Patient slept 6.00 hours. Blood sugar this am was 202. Patient is now asleep. No issues noted at this time.
[2020-05-24 07:30] VITALS: BP 182/62
[2020-05-24] MEDS: AMLODIPINE 5 MG TABLET PO SCH ×2 (08:29→20:10)
[2020-05-24] MEDS: METFORMIN HCL 500 MG TABLET PO SCH ×2 (08:29→17:57)
[2020-05-24] MEDS: CEphaleXIN 500 MG CAPSULE PO SCH ×2 (08:29→17:57)
[2020-05-24] MEDS: GABAPENTIN 100 MG CAPSULE PO SCH ×3 (08:29→17:57)
[2020-05-24] MEDS: LISINOPRIL 20 MG TABLET PO SCH (08:30)
[2020-05-24] MEDS: risperiDONE 1 MG TABLET PO SCH ×2 (08:39→17:57)
[2020-05-24] MEDS ORDERED: DEXTROSE 50% 50 ML DISP.SYRIN IV PRN (12:00)
[2020-05-24 15:37] VITALS: BP 159/60
--- NOTE | 2020-05-24 17:00 | NUR ---
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 Inconsistent with her mood, refused accu-chech before lunch , but able to clet staff check her BS after dinner. Reviewed diabetic teaching get irritable claimed she known already., does not need teaching.
[2020-05-24] MEDS: INSULIN REGULAR, HUMAN 300 UNIT/3 ML VIAL SQ PRN (18:06)
[2020-05-24 20:13] VITALS: BP 198/74
[2020-05-24] MEDS: INSULIN REGULAR, HUMAN 300 UNITS/3 ML VIAL SQ PRN (21:08)
[2020-05-24 23:43] VITALS: BP 158/76
[2020-05-25] MEDS: PANTOPRAZOLE SODIUM 40 MG TABLET.DR PO SCH (06:08)
[2020-05-25] MEDS: hydrALAZINE HCL 25 MG TABLET PO SCH ×3 (06:08→21:08)
[2020-05-25] MEDS: BLOOD SUGAR DIAGNOSTIC 1 EACH STRIP VI SCH ×4 (06:31→20:25)
--- NOTE | 2020-05-25 07:01 | NUR ---
PATIENT SLEPT FOR APPROX 9HRS THROUGH THE NIGHT. CONTINUE EASILY IRRITABLE BUT REDIRECTABLE. WILL CONTINUE TO MONITOR/
[2020-05-25] MEDS: METFORMIN HCL 500 MG TABLET PO SCH ×3 (08:00→17:30)
--- NOTE | 2020-05-25 08:58 | NUR ---
UR Note: Auth #[id number] from [employer] - , . This SW sent Radha child support case officer ([phone]) (F:[phone]) patient's clinicals and left a voicemail.
[2020-05-25] MEDS: LISINOPRIL 20 MG TABLET PO SCH ×2 (09:00→15:12)
[2020-05-25] MEDS: CEphaleXIN 500 MG CAPSULE PO SCH ×3 (09:00→17:30)
[2020-05-25] MEDS: GABAPENTIN 100 MG CAPSULE PO SCH ×3 (09:00→17:30)
[2020-05-25] MEDS: risperiDONE 1 MG TABLET PO SCH ×3 (09:00→20:08)
[2020-05-25] MEDS: AMLODIPINE 5 MG TABLET PO SCH ×3 (09:00→20:30)
[2020-05-25] MEDS: INSULIN REGULAR, HUMAN 300 UNIT/3 ML VIAL SQ PRN ×3 (09:03→17:32)
--- NOTE | 2020-05-25 09:50 | NUR ---
[facility] Crisis Team: This SW contacted Louise at [phone] to gather information about pt but was unavailable. This SW left a voicemail.
--- NOTE | 2020-05-25 12:45 | NUR ---
UR Note: Auth #[id number] from [employer] - , . This SW spoke with Radha case packer ([phone]) (F:[phone]) who stated pt is authorized until 05/28.
--- NOTE | 2020-05-25 15:04 | NUR ---
SW Coordination of Care: This SW faxed to Radha conservation worker ([phone]) (F:[phone]) to help find placement.
[2020-05-25 16:00] VITALS: BP 166/48
[2020-05-25] MEDS: INSULIN REGULAR, HUMAN 300 UNITS/3 ML VIAL SQ PRN (20:26)
[2020-05-25 20:43] VITALS: BP 183/62
--- NOTE | 2020-05-25 22:00 | NUR ---
GPS: Pt.refused re-check of B/P despite explanation of importance. Denies headache,pain nor any form of discomfort at this time.
[2020-05-26] MEDS: INSULIN REGULAR, HUMAN 300 UNITS/3 ML VIAL SQ PRN ×2 (00:04→20:49)
[2020-05-26] MEDS: hydrALAZINE HCL 25 MG TABLET PO SCH ×3 (05:40→21:52)
[2020-05-26] MEDS: PANTOPRAZOLE SODIUM 40 MG TABLET.DR PO SCH (06:02)
[2020-05-26] MEDS: BLOOD SUGAR DIAGNOSTIC 1 EACH STRIP VI SCH ×4 (06:39→20:13)
[2020-05-26 07:30] VITALS: BP 159/52
[2020-05-26] MEDS: risperiDONE 1 MG TABLET PO SCH ×2 (08:19→20:14)
[2020-05-26] MEDS: CEphaleXIN 500 MG CAPSULE PO SCH ×2 (08:19→17:06)
[2020-05-26] MEDS: GABAPENTIN 100 MG CAPSULE PO SCH ×3 (08:19→17:06)
[2020-05-26] MEDS: AMLODIPINE 5 MG TABLET PO SCH ×2 (08:20→20:14)
[2020-05-26] MEDS: METFORMIN HCL 500 MG TABLET PO SCH ×2 (08:20→17:06)
[2020-05-26] MEDS: INSULIN REGULAR, HUMAN 300 UNIT/3 ML VIAL SQ PRN ×3 (08:23→17:10)
[2020-05-26] MEDS: LISINOPRIL 20 MG TABLET PO SCH (08:33)
[2020-05-26] MEDS ORDERED: LOPERAMIDE HCL 2 MG CAPSULE PO PRN (09:30)
--- NOTE | 2020-05-26 10:48 | NUR ---
Individual Therapy: lunchroom worker met with patient for brief counseling to help address patients presenting problem paranoid thought content. Patient appeared paranoid and delusional stating that "my is waiting for me at the bank and we are going to get ... I need to get out of here". This SW attempted to help pt and re-direct to reality, however, pt was not understanding.
--- NOTE | 2020-05-26 11:37 | NUR ---
[facility]: This SW received a phone call from [facility] case picker Matt ([phone]) who stated that patient is homeless and gave more information on pt. She stated patient has a daughter but does not want to be contacted and that she has not heard from patient for 20 years. Matt stated that she will be closing the case.
--- NOTE | 2020-05-26 11:45 | NUR ---
UR Note: Auth #[id number] from [employer] - , . This SW sent Radha trimming caser ([phone]) (F:[phone]) clinicals to review for SNF option. Per Radha, she stated that she reviewed patient's clinicals and that patient is high functioning and is ambulatory. She stated she will not get accepted to a SNF.
[2020-05-26 15:17] VITALS: BP 131/49
[2020-05-26 20:21] VITALS: BP 124/68
[2020-05-27] MEDS: hydrALAZINE HCL 25 MG TABLET PO SCH ×3 (06:00→21:02)
[2020-05-27] MEDS: PANTOPRAZOLE SODIUM 40 MG TABLET.DR PO SCH (06:12)
[2020-05-27] MEDS: BLOOD SUGAR DIAGNOSTIC 1 EACH STRIP VI SCH ×4 (06:13→21:00)
--- NOTE | 2020-05-27 06:14 | NUR ---
GPS: Pt.is easily irritable when approached and argumentative at this time. Refused b/p check and due meds.at this time despite explanation of importance. Pt.was able to let this appeals writer check her blood sugar after a lot of persuasion from staff. B.S is 177mg/dl at this time.
[2020-05-27 07:30] VITALS: BP 149/57
[2020-05-27] MEDS: METFORMIN HCL 500 MG TABLET PO SCH ×2 (07:59→17:31)
[2020-05-27] MEDS: CEphaleXIN 500 MG CAPSULE PO SCH ×2 (08:00→17:31)
[2020-05-27] MEDS: GABAPENTIN 100 MG CAPSULE PO SCH ×3 (08:00→17:31)
[2020-05-27] MEDS: risperiDONE 1 MG TABLET PO SCH ×3 (08:00→20:50)
[2020-05-27] MEDS: LISINOPRIL 20 MG TABLET PO SCH (08:11)
[2020-05-27] MEDS: AMLODIPINE 5 MG TABLET PO SCH ×2 (08:11→20:51)
[2020-05-27] MEDS: INSULIN REGULAR, HUMAN 300 UNIT/3 ML VIAL SQ PRN ×4 (08:16→21:01)
--- NOTE | 2020-05-27 14:09 | NUR ---
Court Hearing: Patient's court hearing was held today and it was upheld for GD.
[2020-05-27 16:09] VITALS: BP 165/63
[2020-05-27 21:16] VITALS: BP 172/63
[2020-05-28] MEDS: PANTOPRAZOLE SODIUM 40 MG TABLET.DR PO SCH (06:20)
[2020-05-28] MEDS: hydrALAZINE HCL 25 MG TABLET PO SCH ×3 (06:22→21:37)
[2020-05-28] MEDS: BLOOD SUGAR DIAGNOSTIC 1 EACH STRIP VI SCH ×4 (06:30→20:07)
--- NOTE | 2020-05-28 06:34 | NUR ---
Pt slept for 8.45 hours. Denies pain or SOB. Denies feeling dizzy. Tolerated all medications well.
[2020-05-28 07:30] VITALS: BP 173/51
--- NOTE | 2020-05-28 08:39 | NUR ---
UR Note: Auth #[id number] from [employer] - , . This SW sent Radha upper caser ([phone]) (F:[phone]) sent patient's clinical for review and requested continued stay at the hospital. Radha will review and contact this SW.
[2020-05-28] MEDS: CEphaleXIN 500 MG CAPSULE PO SCH (09:46)
[2020-05-28] MEDS: GABAPENTIN 100 MG CAPSULE PO SCH ×3 (09:46→17:01)
[2020-05-28] MEDS: METFORMIN HCL 500 MG TABLET PO SCH ×2 (09:46→17:03)
[2020-05-28] MEDS: AMLODIPINE 5 MG TABLET PO SCH ×2 (09:47→20:07)
[2020-05-28] MEDS: LISINOPRIL 20 MG TABLET PO SCH (09:47)
[2020-05-28] MEDS: INSULIN REGULAR, HUMAN 300 UNIT/3 ML VIAL SQ PRN ×3 (09:51→17:02)
[2020-05-28] MEDS: risperiDONE 1 MG TABLET PO SCH ×2 (09:52→20:07)
--- NOTE | 2020-05-28 10:10 | NUR ---
Received pt in assigned room in bed, A&Ox3, able to verbalize needs, anxious, needy, hyperverbal. No acute distress noted, no complaints of pain or discomfort. Denies SI/HI/VH/AH. Pt is able to verbally contract for safety. Reassurance provided as needed. Fall precautions and clutter free environment ensured. Will continue to monitor.
--- NOTE | 2020-05-28 10:21 | NUR ---
UR Note: Auth #[id number] from [employer] - , . This SW sent Radha case reviewer ([phone]) (F:[phone]) and is authorized until 06/01/20 and review will be due on 06/01/20.
--- NOTE | 2020-05-28 11:07 | NUR ---
Individual Therapy: drapery worker met with patient for brief counseling to help address patients presenting problem paranoid thought content. Patient appeared paranoid and delusional. Patient has been verbally abusive towards this SW, stating "go to hell" and stating inappropriate comments. SW unable to conduct therapy at this time.
[2020-05-28 16:38] VITALS: BP 166/65
[2020-05-28] MEDS: CLONIDINE HCL 0.1 MG TABLET PO PRN (17:03)
--- NOTE | 2020-05-28 18:46 | NUR ---
EOSS: Pt seen ambulating in hallway with FWW. No acute distress noted, no complaints at this time. All needs met promptly. Pt remained adherent with medications and care. Continued to deny SI/HI/VH/AH. Redirection, reassurance provided PRN. Pt verbally CFS. Fall precautions and clutter free environment maintained. Will endorse care to shift leader.
[2020-05-28 20:00] VITALS: BP 196/85
[2020-05-28] MEDS: INSULIN REGULAR, HUMAN 300 UNITS/3 ML VIAL SQ PRN (20:14)
[2020-05-28 21:15] VITALS: BP 184/57
[2020-05-29] MEDS: PANTOPRAZOLE SODIUM 40 MG TABLET.DR PO SCH (06:21)
[2020-05-29] MEDS: hydrALAZINE HCL 25 MG TABLET PO SCH ×3 (06:22→22:10)
[2020-05-29] MEDS: BLOOD SUGAR DIAGNOSTIC 1 EACH STRIP VI SCH ×4 (06:37→20:18)
[2020-05-29 07:30] VITALS: BP 111/63
[2020-05-29] MEDS: INSULIN REGULAR, HUMAN 300 UNIT/3 ML VIAL SQ PRN ×2 (08:16→11:30)
[2020-05-29] MEDS: GABAPENTIN 100 MG CAPSULE PO SCH ×3 (08:40→16:18)
[2020-05-29] MEDS: METFORMIN HCL 500 MG TABLET PO SCH ×2 (08:40→17:53)
[2020-05-29] MEDS: risperiDONE 1 MG TABLET PO SCH ×2 (08:41→20:01)
[2020-05-29] MEDS: AMLODIPINE 5 MG TABLET PO SCH ×2 (08:41→20:07)
[2020-05-29] MEDS: LISINOPRIL 20 MG TABLET PO SCH (08:41)
--- NOTE | 2020-05-29 12:59 | NUR ---
UR Note: Auth #[id number] from [employer] - , . This SW contacted Radha egg caser ([phone]) (F:[phone]) who stated that she will arrange outpatient psychiatric appointment for pt and will notify. This SW left a voicemail to follow-up.
--- NOTE | 2020-05-29 14:59 | NUR ---
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 Patient appeared paranoid and delusional. Patient stated that the "Distribution Center Manager's department is suppose to pick her up and that she is going to dao [facility] in [place]". This SW had to re-direct patient back to reality.
[2020-05-29 16:32] VITALS: BP 141/48
[2020-05-29 20:00] VITALS: BP 148/80
[2020-05-29] MEDS: INSULIN REGULAR, HUMAN 300 UNITS/3 ML VIAL SQ PRN (20:19)
[2020-05-30] MEDS: hydrALAZINE HCL 25 MG TABLET PO SCH ×3 (05:56→21:38)
[2020-05-30] MEDS: BLOOD SUGAR DIAGNOSTIC 1 EACH STRIP VI SCH ×4 (06:07→20:31)
[2020-05-30] MEDS: PANTOPRAZOLE SODIUM 40 MG TABLET.DR PO SCH (06:12)
--- NOTE | 2020-05-30 06:27 | NUR ---
GPS: Remain calm and cooperative with medications and care. Pt slept for 8.15 hours. Denies pain or SOB. Denies feeling dizzy. assisted with adl's. Tolerated all medications well. continue plan of care.
[2020-05-30 07:30] VITALS: BP 161/56
--- NOTE | 2020-05-30 07:30 | NUR ---
RECEIVED PATIENT ASLEEP ON HER BED, DISORGANIZED, PATIENT EASILY IRRITABLE, REDIRECTABLE, COMPLIANT WITH MEDICATION, PATIENT NEEDED PROMPTING WITH MEDICATION, ON MONITORING FOR SAFETY, NO SIGN OF DISTRESS AT THIS TIME
[2020-05-30] MEDS: METFORMIN HCL 500 MG TABLET PO SCH ×2 (08:08→17:00)
[2020-05-30] MEDS: risperiDONE 1 MG TABLET PO SCH ×2 (08:08→20:15)
[2020-05-30] MEDS: AMLODIPINE 5 MG TABLET PO SCH ×2 (08:09→20:15)
[2020-05-30] MEDS: GABAPENTIN 100 MG CAPSULE PO SCH ×3 (08:09→16:25)
[2020-05-30] MEDS: LISINOPRIL 20 MG TABLET PO SCH (08:09)
[2020-05-30] MEDS: INSULIN REGULAR, HUMAN 300 UNIT/3 ML VIAL SQ PRN ×2 (11:28→16:32)
[2020-05-30 16:00] VITALS: BP 151/49
--- NOTE | 2020-05-30 17:30 | NUR ---
seen and examined by
--- NOTE | 2020-05-30 17:52 | NUR ---
PATIENT REMAIN CALM, COOPERATIVE, NO SIGN OF ANY DISTRESS, PATIENT DENIES SI AND HI , WILL CONTINUE MONITOR
[2020-05-30 20:10] VITALS: BP 148/52
[2020-05-30] MEDS: INSULIN REGULAR, HUMAN 300 UNITS/3 ML VIAL SQ PRN (20:33)
--- NOTE | 2020-05-31 06:07 | NUR ---
GPS: Remain calm and cooperative with medications and care. Pt slept for 8 hours. Denies pain or SOB. Denies feeling dizzy. assisted with adl's. Tolerated all medications well. continue plan of care.
[2020-05-31] MEDS: PANTOPRAZOLE SODIUM 40 MG TABLET.DR PO SCH (06:15)
[2020-05-31] MEDS: hydrALAZINE HCL 25 MG TABLET PO SCH ×3 (06:23→20:11)
[2020-05-31] MEDS: BLOOD SUGAR DIAGNOSTIC 1 EACH STRIP VI SCH ×4 (06:24→20:10)
[2020-05-31 07:30] VITALS: BP 149/75
[2020-05-31] MEDS: AMLODIPINE 5 MG TABLET PO SCH ×2 (08:11→20:11)
[2020-05-31] MEDS: risperiDONE 1 MG TABLET PO SCH ×2 (08:11→20:10)
[2020-05-31] MEDS: GABAPENTIN 100 MG CAPSULE PO SCH ×3 (08:12→16:08)
[2020-05-31] MEDS: LISINOPRIL 20 MG TABLET PO SCH (08:12)
[2020-05-31] MEDS: METFORMIN HCL 500 MG TABLET PO SCH ×2 (08:12→16:53)
[2020-05-31] MEDS: INSULIN REGULAR, HUMAN 300 UNIT/3 ML VIAL SQ PRN ×3 (08:18→16:31)
[2020-05-31 16:00] VITALS: BP 190/62
[2020-05-31] MEDS: CLONIDINE HCL 0.1 MG TABLET PO PRN (16:52)
--- NOTE | 2020-05-31 17:00 | NUR ---
NOTED PATIENT'S B/P IS 190/62,CATAPRES 0.1 MG GIVEN ORDERED,BS IS 155 REFUSED FOR SLIDING SCALE COVERED ,SHE STATED MY BLOOD SUGAR IS DOING WELL.
[2020-05-31 18:20] VITALS: BP 155/53
[2020-05-31 20:00] VITALS: BP 158/67
[2020-05-31] MEDS: INSULIN REGULAR, HUMAN 300 UNITS/3 ML VIAL SQ PRN (20:13)
[2020-06-01] MEDS: hydrALAZINE HCL 25 MG TABLET PO SCH ×2 (05:49→13:02)
[2020-06-01] MEDS: PANTOPRAZOLE SODIUM 40 MG TABLET.DR PO SCH (06:31)
[2020-06-01] MEDS: BLOOD SUGAR DIAGNOSTIC 1 EACH STRIP VI SCH ×2 (06:31→11:56)
[2020-06-01 07:30] VITALS: BP 163/50
--- NOTE | 2020-06-01 08:24 | NUR ---
SW Discharge Note: Patient chooses to be discharged to [facility] [id number] [facility], [place] [address], [facility]. Patient will be provided with taxi transportation at 1PM. Patient does not have any family contact at this time. Patient is alert and oriented x3. Patient denies suicidal or homicidal ideation. Patient will follow up with (Director Government) Dr. Burks on June 10 at 4:15PM and will provide and manage psychotropic medications located at [facility] [address], [facility] [address]; ([phone]) and Acacia temporary receptionist will refer patient to a psychiatrist through her insurance. Patients shoe parts caser Radha ([phone]) will reach out to provide outpatient resources if needed. Patient was provided referrals to the following substance abuse programs: [facility] ([phone]); [facility] [address] [place] [address] ([phone]); [facility] [address] [facility] [address] ([phone]); [facility] ([phone]); [facility] ([phone]); [facility] ([phone]); [facility] ([phone]). Patient signed the homeless waiver upon discharge and a copy was placed in the chart. Homeless resources were provided and include [address] information line for shelters and homeless resources. A copy of all resources given to patient was also placed in the chart.
[2020-06-01] MEDS: INSULIN REGULAR, HUMAN 300 UNIT/3 ML VIAL SQ PRN ×2 (08:30→12:24)
[2020-06-01] MEDS: METFORMIN HCL 500 MG TABLET PO SCH (08:45)
[2020-06-01] MEDS: risperiDONE 1 MG TABLET PO SCH (08:45)
[2020-06-01] MEDS: GABAPENTIN 100 MG CAPSULE PO SCH ×2 (08:45→12:26)
[2020-06-01] MEDS: AMLODIPINE 5 MG TABLET PO SCH (08:46)
[2020-06-01] MEDS: LISINOPRIL 20 MG TABLET PO SCH (08:46)
--- NOTE | 2020-06-01 09:40 | NUR ---
UR Note: Auth #[id number] from [employer] - , . This SW contacted Radha manager of case ([phone]) (F:[phone]) and left a detailed voicemail of patient's discharge.
--- NOTE | 2020-06-01 10:09 | NUR ---
D/C PLANNING PATIENT WILL BE DISCHARGED AFTER LUNCH TO [place] [id number] IN [place] PATIENT IS AWARE.
[2020-06-01 13:02] VITALS: BP 162/70
--- NOTE | 2020-06-01 14:15 | NUR ---
PATIENT DISCHARGED PICKED UP BY THE [employer] IN SATISFACTORY CONDITION WITH DISCHARGE INSTRUCTIONS AND PRESCRIPTIONS TO [facility] WITH ALL HER PERSONAL BELONGINGS INCLUDING HER INSULIN FROM THE PHARMACY AND OTHER PERSONAL BELONGINGS FROM THE HOSPITAL SAFE.WRIST BAND WAS REMOVED ASSISTED BY W/CHAIR.PATIENT INSTRUCTED TO GO TO HER PHARMACY AND FILL UP HER PRESCRIPTIONS AND TO FOLLOW UP WITH DR MCKNIGHT AND WILL BE ASSISTED WITH REFERRAL TO PSYCHIATRIST AND SHE EXPRESSED UNDERSTANDING.
== END 2020-06-01 14:15 | disposition home or self-care (01) | DRG 885 ==
LOC: ER 20:27 → GPS 05-22 07:52
PROVIDERS: ADMIT Psychiatry & Neurology Psychiatry; ATTEND Registered Nurse
DX: F29 Unspecified psychosis not due to a substance or known physiological condition (principal); E11.65 Type 2 diabetes mellitus with hyperglycemia; N39.0 Urinary tract infection, site not specified; E66.01 Morbid (severe) obesity due to excess calories; Z68.39 Body mass index [BMI] 39.0-39.9, adult; Z59.0 Homelessness; B96.20 Unspecified Escherichia coli [E. coli] as the cause of diseases classified elsewhere; I25.10 Atherosclerotic heart disease of native coronary artery without angina pectoris; Z86.73 Personal history of transient ischemic attack (TIA), and cerebral infarction without residual deficits; Z90.710 Acquired absence of both cervix and uterus; F20.0 Paranoid schizophrenia; M19.90 Unspecified osteoarthritis, unspecified site; Z20.822 Contact with and (suspected) exposure to COVID-19; Z79.84 Long term (current) use of oral hypoglycemic drugs
CPT/HCPCS: 36415; 83735; 84443; 85025; 85730; 87086; A4663; J1200; J1630; J1815; J2060; J2358